=== PATIENT | male | born 1955 | race African-American/Black ===

== ENCOUNTER 2019-05-18 00:26 | Emergency (ER) | payer SELFPAY ==
[~2019-05-18] VITALS: Ht 180.3 cm; Wt 112.5 kg
[2019-05-18 01:12] LABS: *BILIRUBIN,URIN NEGATIVE (NEGATIVE); *CLARITY,URINE CLEAR (CLEAR); *COLOR,URINE YELLOW (YELLOW); *KETONES,URINE NEGATIVE (NEGATIVE); *UROBILINOGEN,URINE 0.2 E.U./dl (NORMAL); LEUKOCYTE ESTERASE ,URINE NEGATIVE (NEGATIVE); NITRITE, URINE NEGATIVE (NEGATIVE); PH,URINE 5.5 (5.0-8.0); UGLUCOSE NEGATIVE (NEGATIVE)
--- NOTE | 2019-05-18 01:15 | NUR ---
Dr. Grigsby at bedside for MSE
[2019-05-18] MEDS ORDERED: KETOROLAC TROMETHAMINE 30 MG INJ IVP ONE (01:30)
[2019-05-18] MEDS ORDERED: IV NS 1000 ML 1,000 ML IV ONE (01:30)
[2019-05-18 01:34] LABS: *BLOOD, URINE TRACE (NEGATIVE)
[2019-05-18 01:35] LABS: BACTERIA,URINE NONE SEEN /HPF (NONE SEEN); RBC,URINE 0-3 /HPF (0-3); SQUAMOUS EPITHELIAL CELL,UR FEW /HPF (NONE SEEN); WBC,URINE NONE SEEN /HPF (0-3)
[2019-05-18 01:40] LABS: BASOPHILS # (AUTO) 0.1 K/uL (0.0-8.0); BASOPHILS % (AUTO) 0.7 % (0.0-2.0); EOSINOPHILS # (AUTO) 0.2 K/uL (0.0-0.7); EOSINOPHILS % (AUTO) 1.8 % (0.0-7.0); HEMATOCRIT 41.4 % (36.7-47.1); HEMOGLOBIN 14.1 g/dL (12.5-16.3); LYMPHOCYTES # (AUTO) 3.3 K/uL (20.0-40.0); LYMPHOCYTES % (AUTO) 28.2 % (20.5-51.5); MEAN CORPUSCULAR HEMOGLOBIN 30.7 uug (23.8-33.4); MEAN CORPUSCULAR HGB CONC 34 g/dL (32.5-36.3); MEAN CORPUSCULAR VOLUME 90.6 fL (73.0-96.2); MONOCYTES # (AUTO) 1.1 K/uL (2.0-10.0); MONOCYTES % (AUTO) 9.1 % (0.0-11.0); NEUTROPHILS % (AUTO) 60.2 % (38.5-71.5); PLATELET COUNT (AUTO) 293 K/uL (152-348); RED BLOOD CELL COUNT(AUTO) 4.57 MIL/uL (4.06-5.63); WHITE BLOOD COUNT (AUTO) 11.6 K/uL (3.6-10.2)
[2019-05-18] MEDS ORDERED: KETOROLAC TROMETHAMINE 30 MG INJ ONE (01:45)
[2019-05-18 01:48] LABS: BILIRUBIN,DIRECT 0.2 mg/dL (0.0-0.2); BILIRUBIN,TOTAL 0.6 mg/dL (0.2-1.0); CREATININE 1.2 mg/dL (0.6-1.3); TOTAL PROTEIN, SERUM 8.7 g/dL (6.4-8.2)
--- NOTE | 2019-05-18 02:04 | NUR ---
Patient back from CT scan
[2019-05-18] MEDS ORDERED: HYDROCODONE/APAP 10-325 MG TABLET PO ONE (03:45)
[2019-05-18] MEDS ORDERED: HYDROCODONE/APAP 10-325 MG TABLET ONE (03:46)
--- NOTE | 2019-05-18 03:55 | NUR ---
IV removed. Catheter intact and site benign. Pressure and 4x4 gauze applied to site. No bleeding noted.Patient discharged to home in stable conditon. Written and verbal after care instructions given. Patient verbalizes understanding of instructions. Patient ambulated to w/c in steady gait. Patient wheeled out by sister. Sister's to drive patient home.
[2019-05-18 04:02] VITALS: BP 126/71
== END 2019-05-18 03:55 | disposition home or self-care (01) ==
LOC: ER 00:35
DX: R10.32 Left lower quadrant pain (principal); M54.5 Low back pain
CPT/HCPCS: 36415; 74176; 80048; 80076; 81000; 81001; 83690; 85025; 96374; 99284; J1885; A4663; J7030

== ENCOUNTER 2019-05-19 01:12 | Emergency (ER) | payer SELFPAY ==
[~2019-05-19] VITALS: Ht 180.3 cm; Wt 111.1 kg
--- NOTE | 2019-05-19 01:30 | NUR ---
Dr. Joyner at bedside for MSE
[2019-05-19] MEDS ORDERED: OXYCODONE/APAP 5-325 MG TABLET PO ONE (01:45)
[2019-05-19] MEDS ORDERED: CYCLOBENZAPRINE HCL 10 MG TABLET PO ONE (01:45)
[2019-05-19] MEDS ORDERED: CYCLOBENZAPRINE HCL 10 MG TABLET ONE (01:48)
[2019-05-19] MEDS ORDERED: OXYCODONE/APAP 5-325 MG TABLET ONE (01:49)
--- NOTE | 2019-05-19 02:00 | NUR ---
Patient discharged to home in stable conditon. Written and verbal after care instructions given. Patient verbalizes understanding of instructions. took patient to family member's car via wheel chair. patient able to ambulate to car from wheel chair. patient's family member driving car
[2019-05-19 02:06] VITALS: BP 145/96
== END 2019-05-19 02:00 | disposition home or self-care (01) ==
LOC: ER 01:17
DX: M54.5 Low back pain (principal); R10.9 Unspecified abdominal pain
CPT/HCPCS: A4663

== ENCOUNTER 2019-05-19 15:12 | Emergency (ER) | payer SELFPAY ==
[~2019-05-19] VITALS: Ht 180.3 cm; Wt 108.9 kg
[2019-05-19] MEDS ORDERED: DEXAMETHASONE SOD PHOSPHATE 4 MG INJ IM ONE (16:45)
[2019-05-19] MEDS ORDERED: HYDROMORPHONE 1 MG/1 ML DISP.SYRIN IM ONE (16:45)
[2019-05-19] MEDS ORDERED: DEXAMETHASONE SOD PHOSPHATE 10 MG INJ ONE (16:47)
[2019-05-19] MEDS ORDERED: HYDROMORPHONE 1 MG/1 ML DISP.SYRIN ONE (16:48)
--- NOTE | 2019-05-19 17:06 | NUR ---
Patient discharged to home in stable conditon. Written and verbal after care instructions given. Patient verbalizes understanding of instructions.
[2019-05-19 17:07] VITALS: BP 143/69
== END 2019-05-19 17:10 | disposition home or self-care (01) ==
LOC: ER 15:14
DX: M54.32 Sciatica, left side (principal); M54.17 Radiculopathy, lumbosacral region
CPT/HCPCS: 96372 ×2; 99284; J1100; J1170; A4663